=== PATIENT | male | born 1990 | race Two or more races ===

== ENCOUNTER 2024-03-02 04:43 | Emergency (ER) | payer OTHER ==
[~2024-03-02] VITALS: Ht 182.9 cm; Wt 145.1 kg
[2024-03-02] MEDS ORDERED: KETOROLAC TROMETHAMINE 60 MG VIAL IM STA (05:55)
[2024-03-02] MEDS ORDERED: ACYCLOVIR15 GM TOP (06:01)
[2024-03-02] MEDS ORDERED: VALTREX1000 MG PO (06:01)
== END 2024-03-02 06:08 ==
LOC: ER 04:44
DX: B02.8 Zoster with other complications (principal); I10 Essential (primary) hypertension